=== PATIENT | male | born 1970 | race Caucasian/White ===

== ENCOUNTER 2016-09-06 14:23 | Emergency (ER) | payer MEDICAID ==
[~2016-09-06] VITALS: Ht 157.5 cm; Wt 80.7 kg
[2016-09-06 16:29] LABS: BASOPHIL % 0.4 % (0-2); PLATELET COUNT 212 x10^3mcL (130-400)
[2016-09-06 16:30] LABS: CALCIUM 8.6 mg/dL (8.5-10.1); CARBON DIOXIDE 28.7 mmol/L (21-32); CHLORIDE SERUM 107 mmol/L (98-107); CREATININE SERUM 0.9 mg/dL (0.7-1.3); GFR1 > 60 mL/min; GLUCOSE SERUM 92 mg/dL (74-106); POTASSIUM SERUM 3.9 mmol/L (3.5-5.1); SODIUM SERUM 142 mmol/L (136-145)
[2016-09-06 16:32] LABS: RED CELL DISTRIBUTION WIDTH 14.7 % (11.5-14.5)
[2016-09-06 16:35] LABS: ALBUMIN 3.8 g/dL (3.4-5.0); ALKALINE PHOSPHATASE 74 U/L (46-116); ALT/SGPT 69 U/L (16-63); AMYLASE 74 U/L (25-115); AST/SGOT 38 U/L (15-37); BILIRUBIN TOTAL 0.48 mg/dL (0.20-1.00); CHOLESTEROL 114 mg/dL (<200); HDL CHOLESTEROL 54 mg/dL (40-60); LIPASE 135 IU/L (73-393); TOTAL PROTEIN, SERUM 7.9 g/dL (6.4-8.2)
[2016-09-06 18:24] VITALS: BP 131/78
== END 2016-09-06 18:24 | disposition home or self-care (01) ==
LOC: ED 14:23
PROVIDERS: Emergency Medicine
DX: J98.01 Acute bronchospasm (principal); R10.9 Unspecified abdominal pain; I10 Essential (primary) hypertension; K42.9 Umbilical hernia without obstruction or gangrene; Z72.89 Other problems related to lifestyle; Z72.0 Tobacco use
CPT/HCPCS: 83880; J2930; J7613; J7644

== ENCOUNTER 2016-09-23 14:40 | Emergency (ER) | payer MEDICAID ==
[~2016-09-23] VITALS: Ht 157.5 cm; Wt 84.4 kg
[2016-09-23 18:31] VITALS: BP 164/111
== END 2016-09-23 18:31 | disposition home or self-care (01) ==
LOC: ED 14:40
DX: J20.9 Acute bronchitis, unspecified (principal); I10 Essential (primary) hypertension; Z86.73 Personal history of transient ischemic attack (TIA), and cerebral infarction without residual deficits